=== PATIENT | female | born 1955 | race Caucasian/White ===

== ENCOUNTER 2017-06-02 12:18 | Emergency (ER) | payer BC ==
[2017-06-02 13:41] VITALS: BP 132/75
[2017-06-02] MEDS ORDERED: Acetaminophen TAB* 325 MG PO ONE (14:11)
--- NOTE | 2017-06-02 14:21 | UC ---
FLU HPI - HPI Summary HPI Summary: pt presents with c/o cough, fever, chills, nasal congestion and generalized malaise X 2 days. - History of Current Complaint Chief Complaint: UCGeneralIllness Stated Complaint: COUGH Time Seen by Provider: 06/02/17 14:00 Hx Obtained From: Patient ?: No Onset/Duration: Sudden Onset, Lasting Days - 2, Worse Since - onset Severity Currently: Moderate Severity Initially: Mild Pain Intensity: 8 Associated Signs & Symptoms: Positive: Fever, Myalgia, Cough Related Hx: Possible Flu/Infectious Exposure - Risk Factors Influenza Risk Factors: Negative - Allergy/Home Medications Allergies/Adverse Reactions: Allergies Allergy/AdvReac Type Severity Reaction Status Date / Time No Known Allergies Allergy Verified 06/02/17 13:40 PMH/Surg Hx/FS Hx/Imm Hx Previously Healthy: Yes - Surgical History Surgical History: Yes Surgery Procedure, Year, and Place: right leg and ankle - Family History Known Family History: Positive: Cardiac Disease - Social History Occupation: Employed Full-time Lives: With Family Alcohol Use: None Substance Use Type: None Smoking Status (MU): Never Smoked Tobacco Have You Smoked in the Last Year: No - Immunization History Most Recent Influenza Vaccination: no Review of Systems Constitutional: Fever, Chills, Fatigue Skin: Negative Eyes: Negative ENT: Sore Throat, Sinus Congestion Respiratory: Shortness Of Breath, Cough Cardiovascular: Negative Gastrointestinal: Negative Genitourinary: Negative Motor: Negative Neurovascular: Negative Musculoskeletal: Myalgia Neurological: Headache Psychological: Negative Is Patient Immunocompromised?: No All Other Systems Reviewed And Are Negative: Yes Physical Exam Triage Information Reviewed: Yes Appearance: Ill-Appearing Vital Signs: Initial Vital Signs Temp 101.0 F 06/02/17 13:36 Pulse 74 06/02/17 13:36 Resp 18 06/02/17 13:36 BP 132/75 06/02/17 13:36 Pulse Ox 97 06/02/17 13:36 Vital Signs Reviewed: Yes Eye Exam: Normal ENT Exam: Other ENT: Positive: Nasal congestion Dental Exam: Normal Neck exam: Normal Respiratory Exam: Other Respiratory: Positive: Wheezing Cardiovascular Exam: Normal Musculoskeletal Exam: Normal Neurological Exam: Normal Psychological Exam: Normal Skin Exam: Normal Flu Course/Dx - Course Course Of Treatment: Rapid flu positive: B - Differential Dx/Diagnosis Differential Diagnosis/HQI/PQRI: Bronchitis, Influenza, Pneumonia Provider Diagnoses: Influenza B. bronchitis Discharge - Discharge Plan Condition: Stable Disposition: HOME Prescriptions: DOXYcycline CAP(*) [DOXYcycline 100MG CAP(*)] 100 mg PO Q12H #20 cap Oseltamivir CAP* [Tamiflu CAP*] 75 mg PO Q12H #10 cap Patient Education Materials: Influenza (ED), Acute Bronchitis (ED) Forms: *Work Release Referrals: No Primary Care Phys,NOPCP [Primary Care Provider] - If Needed Additional Instructions: Please follow up with your PCP or return to clinic as needed. If symptoms worsen , please seek care at the closest emergency room.
== END 2017-06-02 14:31 | disposition home or self-care (01) ==
LOC: UCCORT 12:18
DX: J11.1 Influenza due to unidentified influenza virus with other respiratory manifestations (principal); J40 Bronchitis, not specified as acute or chronic
CPT/HCPCS: 87502; 99212; A9270-GY; G0463

== ENCOUNTER 2017-09-05 13:37 | Emergency (ER) | payer BC ==
[2017-09-05 16:13] VITALS: BP 155/82
--- NOTE | 2017-09-05 16:22 | UC ---
Lower Extremity/Ankle HPI - HPI Summary HPI Summary: 62 y/o female presents to the urgent care c/o Rt ankle pain w/ swelling since yesterday. Pt reports she has Hx of RT ankle fracture s/p falling from a roof and then ORIF about 5-6 days. Rt ankle pain has been on and off and she doesn' t know what is triggers it.Pain is 4/10 specially w/ movement and she feels like something is moving in the ankle. She has some screws on it. Pain is alleviated w/ a brief stop when she is walking and then it goes away. Pt dneis fever, numbness or tingling sensation, calf pain, SOB, chest pain, abdominal pain, N/V/D - History of Current Complaint Chief Complaint: UCLowerExtremity Stated Complaint: ANKLE COMPLAINT (R) Time Seen by Provider: 09/05/17 16:14 Hx Obtained From: Patient ?: No - menopausal Onset/Duration: Gradual Onset, Lasting Days - 1 day, Still Present Severity Initially: Mild Severity Currently: Mild Pain Intensity: 4 Pain Scale Used: 0-10 Numeric Aggravating Factor(s): Ambulation Alleviating Factor(s): Rest, OTC Meds Able to Bear Weight: Yes - Risk Factors Gout Risk Factors: Age Over 40, Hypertension DVT Risk Factors: Negative Septic Arthritis Risk Factor: Negative - Allergies/Home Medications Allergies/Adverse Reactions: Allergies Allergy/AdvReac Type Severity Reaction Status Date / Time No Known Allergies Allergy Verified 09/05/17 16:14 Home Medications: Home Medications Lisinopril/HCTZ 20/25(NF) [Zestoretic 20/25(NF)] 1 tab PO DAILY 09/05/17 [ History Confirmed 09/05/17] PMH/Surg Hx/FS Hx/Imm Hx Previously Healthy: Yes Cardiovascular History: Hypertension - Surgical History Surgical History: Yes Surgery Procedure, Year, and Place: right leg and ankle ORIF - Family History Known Family History: Positive: Cardiac Disease, Hypertension Family History: stroke, Bone cancer, - Social History Occupation: Employed Full-time Lives: With Family Alcohol Use: None Substance Use Type: None Smoking Status (MU): Never Smoked Tobacco Have You Smoked in the Last Year: No - Immunization History Most Recent Influenza Vaccination: no Review of Systems Constitutional: Negative Skin: Negative Eyes: Negative ENT: Negative Respiratory: Negative Cardiovascular: Negative Gastrointestinal: Negative Genitourinary: Negative Motor: Negative Neurovascular: Negative Musculoskeletal: Decreased ROM - RT ankle, Other: - RT ankle pain and swelling Neurological: Negative Psychological: Negative Is Patient Immunocompromised?: No All Other Systems Reviewed And Are Negative: Yes Physical Exam - Summary Physical Exam Summary: Vital Signs Reviewed: Yes General: well developed, well nourished female, sitting in the examining table w /o any apparent distress Eyes: Positive: Conjunctiva Clear - PERRLA, EOMI, ENT: Positive: Normal ENT inspection, Hearing grossly normal, Pharynx normal, TMs normal Neck: Positive: Supple, Nontender, No Lymphadenopathy Respiratory: Positive: Chest non-tender, Lungs clear, Normal breath sounds, No respiratory distress Cardiovascular: Positive: RRR, No Murmur, Pulses Normal, Brisk Capillary Refill Abdomen Description: Positive: Nontender, No Organomegaly, Soft. Negative: CVA Tenderness (R), CVA Tenderness (L) Bowel Sounds: Positive: Present Musculoskeletal: - Ankle: Pt is able to bear weight and ambulate w/o limping. The R ankle is without obvious asymmetry or deformity when compared to the L ankle. Decreased ROM due to pain. Moderate swelling at the lateral malleolus, with tenderness to palpation. No ecchymosis or bruising observed. Tenderness to palpation over the medial malleolus , no swelling observed. Talar tilt test is negative for ligament laxity to valgus or varus stress. Negative anterior drawer. Peroneal nerve is intact with strong eversion and plantar flexion. Positive sensation over the Rt foot and Rt ankle, positive pulses, capillary refill intact Neurological Exam: Normal Psychological Exam: Normal Skin: warm and dry Triage Information Reviewed: Yes Vital Signs: Initial Vital Signs Temp 98.2 F 09/05/17 16:09 Pulse 68 09/05/17 16:09 Resp 14 09/05/17 16:09 BP 155/82 09/05/17 16:09 Pulse Ox 95 09/05/17 16:09 Lower Extremity Course/Dx - Course Course Of Treatment: 62 y/o female presents to the urgent care c/o Rt ankle pain w/ swelling since yesterday. Pt reports she has Hx of RT ankle fracture s/ p falling from a roof and then ORIF about 5-6 days. Rt ankle pain has been on and off and she doesn't know what is triggers it.Pain is 4/10 specially w/ movement and she feels like something is moving in the ankle. She has some screws on it. Pain is alleviated w/ a brief stop when she is walking and then it goes away. Pt dneis fever, numbness or tingling sensation, calf pain, SOB, chest pain, abdominal pain, N/V/D. Hx obtained. Rt ankle X-ray ordered, Impression: Healed fibula and medial mallelolus fractures, No acute fracture or malaligment, mild osteoarthritis and moderate Soft tissue swelling observed. Pt 's RT ankle immobilized with Breezy-bandage and a gel ankle splint, Rx Naproxen PO to decrease swelling and pain. Pt advised RICE, and to f/u with PCP on orthopedic DR Quintero in 1 week if not improvement of symptoms for further treatment. Pt's BP is elevated today advised to decrease salt in diet, monitor BP and f/u with PCP for further management. pt understood and agreed w/ D/C instructions and left clinic ambulating. - Differential Dx/Diagnosis Differential Diagnosis/HQI/PQRI: Arthritis, Fracture (Closed), Sprain, Strain, Tendonitis Provider Diagnoses: 1- RT acute ankle pain. 2- Osteoarthritis. 3- Uncontrolled HTN Discharge - Sign-Out/Discharge Documenting (check all that apply): Discharge/Admit/Transfer - D/C home - Discharge Plan Condition: Stable Disposition: HOME Prescriptions: Naproxen TAB* [Naprosyn 250 mg TAB*] 250 mg PO Q8H PRN #30 tab PRN Reason: Pain Patient Education Materials: Osteoarthritis (ED), Swollen Joint (ED) Forms: *Work Release Referrals: [facility] [Outside] - 3 Days Bill Quintero MD [Medical Doctor] - 1 Week Additional Instructions: 1-Please take medications as directed to alleviate pain and swelling. 2-Please apply ice, keep your ankle immobilized with the splint. Avoid weight bearing using the crutches 3- Please f/u with Orthopedic DR Quintero or your PCP in 1 week is not improvement of symptoms for further evaluation and treatment. 4-Your BP is elevated today. please decrease salt in your diet, monitor BP and if it continues to be elevated please f/u with your PCP for further management - Billing Disposition and Condition Condition: STABLE Disposition: HOME
[2017-09-05] MEDS ORDERED: Naproxen TAB* 250 MG PO ONE (16:35)
--- NOTE | 2017-09-05 17:18 | RAD ---
Indication: RIGHT ankle pain medially and posteriorly. ORIF 5 years ago. Comparison: No relevant prior exams available on the [facility] PACS for comparison. Technique: AP, mortise, and lateral views RIGHT ankle. Report: No evidence for component fracture or loosening with regard to the cortical plate and fixation screws projecting medial distal diaphyseal fracture fibula for a retracted full medial malleolus fracture. No acute fracture or articular malalignment. Mild osteophytosis and joint space narrowing at the talocrural joint. Moderate soft tissue swelling. Os peroneum accessory ossicle. IMPRESSION: Healed fibula and medial malleolus fractures. No acute fracture or malalignment. Mild osteoarthritis. Nonspecific nonfocal soft tissue swelling.
== END 2017-09-05 17:50 | disposition home or self-care (01) ==
LOC: UCCORT 13:37
DX: M25.571 Pain in right ankle and joints of right foot (principal); M19.071 Primary osteoarthritis, right ankle and foot; I10 Essential (primary) hypertension; Z87.81 Personal history of (healed) traumatic fracture; Z96.7 Presence of other bone and tendon implants
CPT/HCPCS: 99213; A9270-GY; G0463